=== PATIENT | male | born 1985 | race American Indian/Alaskan Native ===

== ENCOUNTER 2019-05-24 12:08 | Emergency (ER) | payer BC ==
[2019-05-24 15:32] VITALS: BP 121/67
--- NOTE | 2019-05-24 16:20 | XRay Report ---
CHEST 2 VIEWS INDICATION: productive cough. COMPARISON: None. FINDINGS: Support devices: None. Heart: Within normal limits. Pulmonary vasculature: Normal. Lungs/pleura: No acute air space or interstitial disease. No pneumothorax. Additional findings: None. IMPRESSION: Normal chest. Signer Name: Johnson Quintana MD Signed: 05/24/2019 4:15 PM Workstation Name: [id number]
--- NOTE | 2019-05-24 16:36 | Emergency Department Report ---
ED Fever HPI - General Chief Complaint: Upper Respiratory Infection Stated Complaint: CHEST TIGHTNESS/COLD SYM Time Seen by Provider: 05/24/19 14:49 - History of Present Illness Initial Comments: Patient [id number] ethnic female who has a history of tobacco use who is here secondary to cough and congestion. Patient also has generalized body aches has had fevers as home. Symptoms present for approximately 3 days. Patient states her cough is productive of yellow-green sputum he has some shortness of breath especially with ambulating. Sore throat nausea vomiting or diarrhea. ED Review of Systems ROS: Stated complaint: CHEST TIGHTNESS/COLD SYM Other details as noted in HPI Comment: All other systems reviewed and negative ED Past Medical Hx - Past Medical History Previous Medical History?: No - Surgical History Past Surgical History?: Yes Additional Surgical History: hernia repair - Social History Smoking Status: Light Tobacco Smoker Substance Use Type: Alcohol - Medications Home Medications: Home Medications Medication Instructions Recorded Confirmed Last Taken Type Benzonatate [Tessalon Perles] 100 mg PO Q8HR #10 capsule 05/24/19 Unknown Rx Fluticasone [Flonase] 1 spray NS QDAY #1 bottle 05/24/19 Unknown Rx guaiFENesin/CODEINE [Robitussin AC] 5 ml PO Q6HR PRN #100 oral.liqd 05/24/19 Un known Rx predniSONE [Deltasone] 20 mg PO QDAY #5 tab 05/24/19 Unknown Rx ED Physical Exam - General Limitations: No Limitations General appearance: alert, in no apparent distress - Head Head exam: Present: atraumatic, normocephalic - Eye Eye exam: Present: normal appearance - ENT ENT exam: Present: mucous membranes moist - Neck Neck exam: Present: normal inspection - Respiratory Respiratory exam: Present: normal lung sounds bilaterally, rhonchi. Absent: respiratory distress, wheezes, rales - Cardiovascular Cardiovascular Exam: Present: regular rate, normal rhythm. Absent: systolic murmur, diastolic murmur, rubs, gallop - GI/Abdominal GI/Abdominal exam: Present: soft, normal bowel sounds - Rectal Rectal exam: Present: deferred - Extremities Exam Extremities exam: Present: normal inspection - Back Exam Back exam: Present: normal inspection - Neurological Exam Neurological exam: Present: alert, oriented X3 - Psychiatric Psychiatric exam: Present: normal affect, normal mood - Skin Skin exam: Present: warm, dry, intact, normal color. Absent: rash ED Course Vital Signs 05/24/19 15:30 Temperature 99.3 F Pulse Rate 86 Respiratory 17 Rate Blood Pressure 121/67 O2 Sat by Pulse 99 Oximetry ED Medical Decision Making - Radiology Data CHEST 2 VIEWS INDICATION: productive cough. COMPARISON: None. FINDINGS: Support devices: None. Heart: Within normal limits. Pulmonary vasculature: Normal. Lungs/pleura: No acute air space or interstitial disease. No pneumothorax. Additional findings: None. IMPRESSION: Normal chest. Signer Name: Johnson Quintana MD Signed: 05/24/2019 4:15 PM Workstation Name: [id number] - Medical Decision Making 33-year-old [place] male who is presenting with a productive cough and fever. Patient's likely with a smoker's bronchitis. Patient be started on medication for symptomatic relief and we discharged home. Critical care attestation.: If time is entered above; I have spent that time in minutes in the direct care of this critically ill patient, excluding procedure time. ED Disposition Clinical Impression: Acute bronchitis Disposition: DC-01 TO HOME OR SELFCARE Is pt being admited?: No Does the pt Need Aspirin: No Condition: Stable Instructions: Acute Bronchitis (ED) Referrals: PRIMARY CAREMD [Primary Care Provider] - 3-5 Days Time of Disposition: 16:34
== END 2019-05-24 17:18 | disposition home or self-care (01) ==
LOC: ED 12:08
DX: J20.9 Acute bronchitis, unspecified (principal); F17.200 Nicotine dependence, unspecified, uncomplicated; Z98.890 Other specified postprocedural states; Z79.899 Other long term (current) drug therapy; Z88.8 Allergy status to other drugs, medicaments and biological substances
CPT/HCPCS: 71046